=== PATIENT | female | born 1960 | race Caucasian/White ===

== ENCOUNTER → 2023-08-15 17:54 | Outpatient (REF) | payer OTHER, SELFPAY | LOC: PAVMRI 17:54 | PROVIDERS: ATTENDING PHYSICIAN Orthopaedic Surgery Adult Reconstructive Orthopaedic Surgery; FAMILY PHYSICIAN Physician Assistant Medical | DX: M16.12 Unilateral primary osteoarthritis, left hip (principal) | CPT/HCPCS: 73721 ==

== ENCOUNTER 2023-08-26 13:52 | Outpatient (RCR) | payer OTHER, SELFPAY | END 2023-08-26 23:59 | disposition home or self-care (01) | LOC: RPT 13:52 | PROVIDERS: ATTENDING PHYSICIAN Orthopaedic Surgery Adult Reconstructive Orthopaedic Surgery; FAMILY PHYSICIAN Physician Assistant Medical | DX: M16.12 Unilateral primary osteoarthritis, left hip (principal); Z73.6 Limitation of activities due to disability | CPT/HCPCS: 97110; 97162; 97530; 97535 ==

== ENCOUNTER → 2023-12-03 13:07 | Outpatient (REF) | payer OTHER, SELFPAY | LOC: HWRAD 13:07 | PROVIDERS: ATTENDING PHYSICIAN Physician Assistant Medical | DX: Z00.00 Encounter for general adult medical examination without abnormal findings (principal); K21.9 Gastro-esophageal reflux disease without esophagitis; M16.12 Unilateral primary osteoarthritis, left hip; Z78.0 Asymptomatic menopausal state | CPT/HCPCS: 77063; 77067; 77080 ==

== ENCOUNTER 2024-12-18 06:15 | Day surgery (SDC) | payer OTHER, SELFPAY ==
[2024-12-14 08:44] VITALS: BMI 35.6
[2024-12-14 10:44] LABS: Hematocrit 38.7 % (37.0-47.0); Hemoglobin 12.5 g/dL (12.0-16.0); Mean Corp Hgb Conc. 32.3 g/dL (33.0-37.0); Mean Corpuscular Hgb 29.3 pg (27.0-31.0); Mean Corpuscular Volume 90.6 fL (81.0-99.0); Mean Platelet Volume 10.7 fL (7.4-10.4); Platelet Count 220 10^3/uL (130-400); Red Blood Cell Count 4.27 10^6/uL (4.20-5.40); Red Cell Dist. Width 13.9 % (11.5-14.5); White Blood Cell Count 5.3 10^3/uL (4.8-10.8)
[2024-12-14 15:07] LABS: Blood Urea Nitrogen 18 mg/dl (7-17); Calcium 9.3 mg/dl (8.4-10.2); Carbon Dioxide 24 mmol/L (22-30); Chloride 111 mmol/L (98-107); Estimated Creatinine Clearance 98 ml/min; Glucose 77 mg/dl (70-99); Potassium 5.1 mmol/L (3.5-5.1); Sodium 142 mmol/L (135-145); eGFR > 60.00
[2024-12-18] VITALS (8 sets, daily range): BP systolic 111–160; BP diastolic 45–83; BMI 35.6
[2024-12-18] MEDS: TYLENOL 1000 MG PO (09:10)
[2024-12-18] MEDS: NORMOSOL-R/PLASMALYTE-A 1000 IV (09:10)
--- NOTE | 2024-12-18 13:47 | W.IMMPOSTOP ---
Surgical Immed Post Op Note
-
Primary Surgeon: Guillaume Arias MD
Assisting Surgeon:
Pre-op Diagnosis: right shoulder subacromial impingement, AC joint osteoarthritis
Post-op Diagnosis: right shoulder subacromial impingement, AC joint osteoarthritis
Procedure Performed: arthroscopic right shoulder subacromial decompression, AC joint resection
Anesthesia Type: general
Specimen / Cultures: none
Estimated Blood Loss: 5mL
Complications: none apparent
Operative Findings: intact biceps tendon and rotator cuff, subacromial bursitis, AC joint osteoarthritis
Operative dictation #: [id number]
== END 2024-12-18 15:22 | disposition home or self-care (01) ==
LOC: SDS 06:15
PROVIDERS: ATTENDING PHYSICIAN Student in an Organized Health Care Education/Training Program; FAMILY PHYSICIAN Physician Assistant Medical
DX: M19.011 Primary osteoarthritis, right shoulder (principal); M25.811 Other specified joint disorders, right shoulder; M75.41 Impingement syndrome of right shoulder
CPT/HCPCS: 29824; 80048; 85027; 93005

== ENCOUNTER → 2025-04-06 14:13 | Outpatient (REF) | payer OTHER, SELFPAY | LOC: WDC 14:13 | PROVIDERS: ATTENDING PHYSICIAN Physician Assistant Medical | DX: Z12.31 Encounter for screening mammogram for malignant neoplasm of breast (principal) | CPT/HCPCS: 77063; 77067 ==